=== PATIENT | male | born 1990 | race African-American/Black ===

== ENCOUNTER → 2016-07-12 | Outpatient (CLI) | payer BC ==
[~2016-07-12] MED LIST: LANTUS100 U/ML SC; NOVLOG SQ; NYSTATIN OR100 MU/ML PO
== END ==
LOC: SUN.DIA 09:54
DX: E11.9 Type 2 diabetes mellitus without complications (principal); Z79.4 Long term (current) use of insulin; Z79.84 Long term (current) use of oral hypoglycemic drugs; E66.9 Obesity, unspecified; Z71.3 Dietary counseling and surveillance
CPT/HCPCS: G0108

== ENCOUNTER → 2016-10-11 | Outpatient (CLI) | payer BC | LOC: SUN.DIA 11:48 | DX: E11.65 Type 2 diabetes mellitus with hyperglycemia (principal); Z68.23 Body mass index [BMI] 23.0-23.9, adult; Z79.4 Long term (current) use of insulin; Z71.3 Dietary counseling and surveillance | CPT/HCPCS: G0108 ==

== ENCOUNTER 2017-04-24 18:03 | Emergency (ER) | payer SELFPAY ==
[~2017-04-24] VITALS: Ht 167.6 cm; Wt 70.9 kg
[2017-04-24 18:04] VITALS: TEMP 98.4
[2017-04-24] MEDS ORDERED: LEVEMIR100 U/ML SQ (18:18)
[2017-04-24] MEDS ORDERED: NOVOLOG 100U100 U/M1 SQ (18:19)
[2017-04-24 18:37] LABS: BASO # 0.1 (0.0-0.2); BASO % 0.3 % (0.0-2.0); GRAN # 19.5 (1.4-6.5); GRAN % 84.3 % (42.2-75.2); LYMPH # 2.2 (1.2-3.4); LYMPH % 9.7 % (20.0-51.0); MEAN CELL VOLUME 97 fl (80.0-100.0); MEAN CORPUSCULAR HGB CONC 33 g/dl (33.0-37.0); MEAN PLATELET VOLUME 10.8 fl (7.4-10.4); MONO % 4.4 % (1.7-9.3); PLATELET COUNT 299 K/mm3 (130-400); RED BLOOD COUNT 5.76 M/mm3 (4.20-5.60)
[2017-04-24 18:38] LABS: HEMATOCRIT 55.7 % (42.0-52.0); HEMOGLOBIN 18.1 g/dl (13.5-18.0); MEAN CORPUSCULAR HEMOGLOBIN 31 pg (27.0-31.0)
[2017-04-24 18:40] LABS: ARTERIAL BLD GAS O2 SATURATION 96.6 % (92-100); ARTERIAL BLD GAS TCO2 CT 6.4; ARTERIAL BLOOD GAS BASE EXCESS -22.5 (-2-2); ARTERIAL BLOOD GAS HCO3 5.7 meq/L (22-26); ARTERIAL BLOOD GAS PHT 7.07 C (7.35-7.45); ARTERIAL BLOOD GAS PO2 106.7 mmHg (80-100); ARTERIAL BLOOD GAS PO2T 106.7 (80-100); ARTERIAL BLOOD GAS pH 7.07 (7.35-7.45); ATS? YES; OXYHEMOGLOBIN 95.6 %
[2017-04-24 18:41] LABS: ALLEN TEST NO
[2017-04-24 18:41] LABS: WHITE BLOOD COUNT 23.2 K/mm3 (4.8-10.8)
[2017-04-24 18:49] LABS: ADJUSTED CALCIUM 8.9 mg/dL (8.4-10.2); ALANINE AMINOTRANSFERASE 72 U/L (21-72); ALBUMIN 5.9 gm/dL (3.5-5.0); ALKALINE PHOSPHATASE 206 U/L (50-136); BILIRUBIN,TOTAL 0.8 mg/dL (0.0-1.0); BLOOD UREA NITROGEN 23 mg/dL (9-20); CALCIUM 10.4 mg/dL (8.4-10.2); CHLORIDE 102 mmol/L (98-107); CREATININE, serum 1.82 mg/dL (0.66-1.25); SODIUM 141 mmol/L (137-145); TOTAL PROTEIN 9.8 gm/dL (6.4-8.2)
[2017-04-24 18:52] LABS: CARBON DIOXIDE < 5 mmol/L (22-30); GLUCOSE 608 mg/dL (74-106); POTASSIUM 6.4 mmol/L (3.4-5.0)
[2017-04-24 18:53] LABS: ACETONE,SERUM LARGE
[2017-04-24 19:44] LABS: COLLECTION METHOD CLEAN CATCH
[2017-04-24 19:51] LABS: MUCOUS Present /lpf; PH 5 (5-8); SQUAMOUS EPITHELIAL 0-2 /hpf; URINE APPEARANCE Clear; URINE BACTERIA None Seen /hpf; URINE BILIRUBIN Negative (NEGATIVE); URINE BLOOD 2+ (NEGATIVE); URINE COLOR Straw; URINE GLUCOSE 3+ (NEGATIVE); URINE KETONE 2+ (NEGATIVE); URINE LEUKOCYTE ESTERASE Negative (NEGATIVE); URINE PROTEIN(semi-quant) 1+ (NEGATIVE); URINE RBC 0-2 /hpf; URINE UROBILINOGEN Negative (NEGATIVE); URINE WBC 0-2 /hpf
[2017-04-24 21:23] VITALS: BP 136/88; PULSE 99
== END 2017-04-24 21:50 | disposition short-term general hospital (02) ==
LOC: COL.ER 18:03
PROVIDERS: Family Medicine
DX: E10.10 Type 1 diabetes mellitus with ketoacidosis without coma (principal); E86.9 Volume depletion, unspecified; Z79.01 Long term (current) use of anticoagulants
CPT/HCPCS: J1815; J2405; J7030

== ENCOUNTER → 2018-01-08 | Outpatient (CLI) | payer SELFPAY ==
[~2018-01-08] MED LIST changes: +LEVEMIR100 U/ML SQ; +NOVOLOG 100U100 U/M1 SQ
[2018-01-08 13:22] LABS: BASO % 0.3 % (0.0-2.0); EOS # 0.1 (0.0-0.7); GRAN # 1.3 (1.4-6.5); GRAN % 34.8 % (42.2-75.2); HEMATOCRIT 48.1 % (42.0-52.0); HEMOGLOBIN 16.6 g/dl (13.5-18.0); LYMPH # 1.9 (1.2-3.4); LYMPH % 51.1 % (20.0-51.0); MEAN CELL VOLUME 87 fl (80.0-100.0); MEAN CORPUSCULAR HEMOGLOBIN 30 pg (27.0-31.0); MEAN CORPUSCULAR HGB CONC 35 g/dl (33.0-37.0); MEAN PLATELET VOLUME 10.4 fl (7.4-10.4); MONO # 0.4 (0.1-0.6); MONO % 10.8 % (1.7-9.3); PLATELET COUNT 238 K/mm3 (130-400); RED BLOOD COUNT 5.53 M/mm3 (4.20-5.60); REDCELL DISTRIBUTION WIDTH-CV 11.9 % (11.5-14.5)
[2018-01-08 13:25] LABS: ALBUMIN 3.8 gm/dL (3.5-5.0); BILIRUBIN,TOTAL 0.7 mg/dL (0.0-1.0); CALCIUM 8.8 mg/dL (8.4-10.2); CREATININE, serum 1.06 mg/dL (0.66-1.25); POTASSIUM 4.2 mmol/L (3.4-5.0); TOTAL PROTEIN 6.7 gm/dL (6.4-8.2)
== END ==
LOC: ZCOL.LAB 13:08
PROVIDERS: Internal Medicine
DX: E11.9 Type 2 diabetes mellitus without complications (principal)

== ENCOUNTER → 2018-04-16 | Outpatient (CLI) | payer SELFPAY | LOC: SUN.DIA 14:08 | DX: E10.9 Type 1 diabetes mellitus without complications (principal); Z79.4 Long term (current) use of insulin; F17.210 Nicotine dependence, cigarettes, uncomplicated | CPT/HCPCS: G0108 ==

== ENCOUNTER → 2018-05-08 | Outpatient (CLI) | payer SELFPAY | LOC: SUN.DIA 13:30 | DX: E10.9 Type 1 diabetes mellitus without complications (principal); Z79.4 Long term (current) use of insulin; F17.210 Nicotine dependence, cigarettes, uncomplicated | CPT/HCPCS: G0108 ==

== ENCOUNTER → 2018-07-24 | Outpatient (CLI) | payer SELFPAY | LOC: SUN.DIA 11:48 | DX: E10.9 Type 1 diabetes mellitus without complications (principal); Z79.4 Long term (current) use of insulin; F17.210 Nicotine dependence, cigarettes, uncomplicated | CPT/HCPCS: G0108 ==

== ENCOUNTER → 2018-09-04 | Outpatient (CLI) | payer SELFPAY | LOC: SUN.DIA 13:52 | DX: E10.9 Type 1 diabetes mellitus without complications (principal); Z79.4 Long term (current) use of insulin; F17.210 Nicotine dependence, cigarettes, uncomplicated | CPT/HCPCS: G0108 ==

== ENCOUNTER → 2018-11-27 | Outpatient (CLI) | payer SELFPAY | LOC: SUN.DIA 10-23 15:01 → DIA.ED 15:52 → SUN.DIA 16:30 | DX: E10.9 Type 1 diabetes mellitus without complications (principal); Z79.4 Long term (current) use of insulin | CPT/HCPCS: G0108 ==

== ENCOUNTER → 2019-02-26 | Outpatient (CLI) | payer SELFPAY | LOC: DIA.ED 13:19 | DX: E10.9 Type 1 diabetes mellitus without complications (principal); Z79.4 Long term (current) use of insulin | CPT/HCPCS: G0108 ==

== ENCOUNTER 2021-02-09 04:27 | Emergency (ER) | payer SELFPAY ==
[~2021-02-09] VITALS: Ht 167.6 cm; Wt 63.6 kg
[2021-02-09 04:52] LABS: BASO # 0.1 (0.0-0.2); BASO % 0.9 % (0.0-2.0); EOS % 0.3 % (0-4.0); GRAN # 3.5 (1.4-6.5); HEMATOCRIT 49.2 % (42.0-52.0); LYMPH # 1.7 (1.2-3.4); LYMPH % 28.6 % (20.0-51.0); MEAN CELL VOLUME 90 fl (80.0-100.0); MEAN CORPUSCULAR HEMOGLOBIN 31 pg (27.0-31.0); MEAN CORPUSCULAR HGB CONC 35 g/dl (33.0-37.0); MONO # 0.6 (0.1-0.6); PLATELET COUNT 250 K/mm3 (130-400); RED BLOOD COUNT 5.49 M/mm3 (4.20-5.60); REDCELL DISTRIBUTION WIDTH-CV 11.9 % (11.5-14.5)
[2021-02-09 05:03] LABS: ALANINE AMINOTRANSFERASE 131 U/L (4-49); ALBUMIN 4.9 gm/dL (3.5-5.0); ALCOHOL(ethanol),MEDICAL 224 mg/dL; ALKALINE PHOSPHATASE 191 U/L (50-136); ANION GAP 15 mmol/L (7-16); AST,SGOT 87 U/L (15-37); BILIRUBIN,TOTAL 0.5 mg/dL (0.0-1.0); BLOOD UREA NITROGEN 17 mg/dL (9-20); CALCIUM 9.3 mg/dL (8.4-10.2); CARBON DIOXIDE 20 mmol/L (22-30); CHLORIDE 107 mmol/L (98-107); CREATININE, serum 1.27 (0.66-1.25); GLUCOSE 280 mg/dL (74-106); POTASSIUM 4.2 mmol/L (3.4-5.0); SODIUM 142 mmol/L (137-145); TOTAL PROTEIN 8.3 gm/dL (6.4-8.2)
[2021-02-09 05:10] LABS: ACETAMINOPHEN < 10 ug/mL (10-30); SALICYLATE < 1.0 mg/dL
[2021-02-09 05:51] VITALS: BP 124/69; PULSE 87; TEMP 97.3
== END 2021-02-09 05:51 ==
LOC: COL.ER 04:27
PROVIDERS: Emergency Medicine
DX: F10.129 Alcohol abuse with intoxication, unspecified (principal); E10.10 Type 1 diabetes mellitus with ketoacidosis without coma; Y90.7 Blood alcohol level of 200-239 mg/100 ml

== ENCOUNTER → 2022-03-23 | Outpatient (CLI) | payer SELFPAY | LOC: COL.RAD 07:27 | DX: R74.01 Elevation of levels of liver transaminase levels (principal) ==

== ENCOUNTER → 2022-04-06 | Outpatient (CLI) | payer SELFPAY ==
[2022-04-06 15:29] LABS: BASO % 1.1 % (0.0-2.0); EOS # 0.2 K/mm3 (0.0-0.7); EOS % 5.1 % (0.0-4.0); GRAN % 27.5 % (42.2-75.2); HEMOGLOBIN 16.3 g/dl (13.5-18.0); LYMPH # 2.2 K/mm3 (1.2-3.4); LYMPH % 57.5 % (20.0-51.0); MEAN CELL VOLUME 91 fl (80.0-100.0); MEAN CORPUSCULAR HEMOGLOBIN 32 pg (27-31); MEAN CORPUSCULAR HGB CONC 35 g/dl (33.0-37.0); MONO # 0.3 K/mm3 (0.1-0.6); MONO % 8.8 % (1.7-9.3); PLATELET COUNT 259 K/mm3 (130-400); RED BLOOD COUNT 5.16 M/mm3 (4.20-5.60); REDCELL DISTRIBUTION WIDTH-CV 12.8 % (11.5-14.5)
[2022-04-06 15:36] LABS: PROTHROMBIN TIME 11.3 SECONDS (9.7-12.8)
[2022-04-06 16:10] LABS: ALBUMIN 3.9 gm/dL (3.5-5.0); BILIRUBIN,TOTAL 0.4 mg/dL (0.2-1.2); CALCIUM 8.9 mg/dL (8.4-10.2); CREATININE, serum 1.16 mg/dL (0.72-1.25); POTASSIUM 3.9 mmol/L (3.5-4.5); TOTAL PROTEIN 7.8 gm/dL (6.2-8.1)
[2022-04-06 21:41] LABS: GAMMA GLUTAMYL TRANSPEPTIDASE 1093 U/L (12-64)
[2022-04-06 21:55] LABS: HEPATITIS B SURFACE ANTIBODY <2.0 (()); HEPATITIS B SURFACE ANTIGEN Negative (Negative)
[2022-04-10 11:32] LABS: ANTISMOOTH MUSCLE ANTIBODY Positive (Negative)
== END ==
LOC: COL.LAB 14:25
DX: F10.10 Alcohol abuse, uncomplicated (principal); R74.8 Abnormal levels of other serum enzymes